=== PATIENT | female | born 1980 | race Caucasian/White ===

== ENCOUNTER 2020-09-22 21:02 | Emergency (ER) | payer MEDICARE, OTHER ==
[2020-09-22 21:54] LABS: HEMOGLOBIN 16.1 gm/dl (12.3-15.3); RED BLOOD COUNT 5.09 M/UL (4.00-5.10); WHITE BLOOD COUNT 10.9 K/UL (4.5-11.0)
[2020-09-22 22:14] LABS: BUN/CREATININE RATIO 10 (0-10)
[2020-09-23] MEDS ORDERED: IBUPROFEN600 MG PO (04:14)
[2020-09-23] MEDS ORDERED: ZOFRAN ODT 4 MG4 MG SL (04:14)
== END 2020-09-23 04:23 | disposition home or self-care (01) ==
LOC: ER1 21:02
PROVIDERS: Physician Assistant
DX: R10.31 Right lower quadrant pain (principal); R10.32 Left lower quadrant pain; I10 Essential (primary) hypertension; F17.210 Nicotine dependence, cigarettes, uncomplicated; Z90.49 Acquired absence of other specified parts of digestive tract; Z90.89 Acquired absence of other organs; Z90.710 Acquired absence of both cervix and uterus; Z88.5 Allergy status to narcotic agent
CPT/HCPCS: 76830; 80053; 81001; 83690; 84703; 85025; 85652; 86140; 87086; 96374; 99284